=== PATIENT | female | born 1980 | race Caucasian/White ===

== ENCOUNTER 2021-04-07 13:35 | Day surgery (SDC) | payer OTHER ==
[~2021-04-07 13:35] MED LIST: MOTRIN800 MG PO; PERCOCET 5/3251 TAB PO
== END 2021-04-08 04:00 | disposition home or self-care (01) ==
LOC: CIR.AMB 13:35
PROVIDERS: ATTEND Specialist
DX: T83.89XA Other specified complication of genitourinary prosthetic devices, implants and grafts, initial encounter (principal); Z20.822 Contact with and (suspected) exposure to COVID-19

== ENCOUNTER 2023-07-19 12:15 | Day surgery (SDC) | payer OTHER ==
[2023-07-19] MEDS ORDERED: PERCOCET 5-3251 EACH PO (17:05)
[2023-07-19] MEDS ORDERED: SURFAK240 M1 PO (17:05)
== END 2023-07-19 22:50 | disposition home or self-care (01) ==
LOC: CIR.AMB 12:15
PROVIDERS: ATTEND Specialist
DX: Z30.2 Encounter for sterilization (principal); N83.292 Other ovarian cyst, left side; T83.89XA Other specified complication of genitourinary prosthetic devices, implants and grafts, initial encounter